=== PATIENT | male | born 1975 | race Caucasian/White ===

== ENCOUNTER 2022-01-10 15:09 | Emergency (ER) | payer OTHER ==
[2022-01-10] MEDS ORDERED: Orphenadrine 100 MG Tab.ER PO STA (16:54)
[2022-01-10] MEDS ORDERED: Ketorolac 60 MG/2 ML SDV IM ONE (16:54)
[2022-01-10] MEDS ORDERED: HYDROmorphone 1 MG/ML Syringe IM ONE (18:49)
== END 2022-01-10 20:00 | disposition home or self-care (01) ==
LOC: JD.ED 15:09
DX: M54.42 Lumbago with sciatica, left side (principal); Z79.899 Other long term (current) drug therapy
CPT/HCPCS: 72100; 96372; 99283; A9270; J1170; J1885